=== PATIENT | female | born 1950 | race Caucasian/White ===

== ENCOUNTER 2021-11-16 17:37 | Emergency (ER) | payer MEDICARE, SELFPAY ==
--- NOTE | ~2021-11-16 | XR_ITS ---
XR hip RT min 2V DATE: 11/16/2021 18:18 INDICATION: Fall. Right hip injury, pain TECHNIQUE: AP and lateral views COMPARISON: None FINDINGS: There is diffuse osteopenia. There is degenerative disc disease in the lower lumbar and lumbosacral spine. The pubic symphysis and sacroiliac joints are intact. No right hip fracture or dislocation, avascular necrosis or bone destruction is detected. IMPRESSION: No evidence of right hip fracture or dislocation Osteopenia Degenerative disc disease of lumbar and lumbosacral area Reviewed, dictated and finalized at location A.
[2021-11-16 17:53] VITALS: BP 125/63; PULSE 90; RESP 18; TEMP 36.6; O2SAT 98
--- NOTE | 2021-11-16 17:54 | ED.GENADULT ---
HPI - General Adult General Chief complaint: Extremity Injury, Lower Stated complaint: Right Leg Pain Time Seen by Provider: 11/16/21 17:54 Source: patient Mode of arrival: ambulatory Limitations: no limitations History of Present Illness HPI narrative: 71-year-old female with hx MS and transverse myelitis presented for complaint of right hip pain sensation. Pt is w/c bound, and states she has noticed a change in the cushion of her w/c indicating a possible protrusion from her hip and is concerned she has injured the hip. States she fell during a transfer from w/c to toilet a few weeks ago and did not seek evaluation at that time. Endorses she can feel pressure sensation from belly button down, but cannot feel sharp pain. She has spoken to her neurologist about one week ago but did not discuss this complaint. Also contacted PCP today regarding this, but was not given a plan for this complaint. Related Data Home Medications Medication Instructions Recorded Confirmed bupropion HCl 300 mg PO DAILY 11/16/21 11/16/21 gabapentin 300 mg PO TID 11/16/21 11/16/21 glatiramer [Copaxone] 40 mg SUBCUT 3XW 11/16/21 11/16/21 lamotrigine 150 mg PO DAILY 11/16/21 11/16/21 mirabegron [Myrbetriq] 25 mg PO DAILY 11/16/21 11/16/21 paliperidone 6 mg PO DAILY 11/16/21 11/16/21 simvastatin 20 mg PO HS 11/16/21 11/16/21 Allergies Allergy/AdvReac Type Severity Reaction Status Date / Time No Known Allergies Allergy Verified 11/16/21 18:09 Review of Systems Review of Systems: CONSTITUTIONAL: Denies body aches, fever, chills EYES: Denies visual changes ENT: Denies rhinorrhea, congestion CARDIOVASCULAR: Denies chest pain, palpitations, or edema. RESPIRATORY: Denies cough or dyspnea. GASTROINTESTINAL: Denies abdominal pain, nausea, vomiting, or diarrhea. SKIN: Denies rash, itching, or wounds. MUSCULOSKELETAL: Reports right hip pain NEUROLOGIC: Denies headache, numbness, tingling, or weakness. PSYCH: Denies depression or anxiety. All systems reviewed & are unremarkable except as noted in HPI and below PMFSH Comments At time of signature, I have reviewed and agree with nursing past medical, surgical, social and family history unless otherwise noted. Please see nursing chart for further information. There is no relevant family history pertinent to the presenting complaint Exam Narrative: GENERAL: Well-appearing, well-nourished, and in no acute distress. HEAD: Normocephalic, atraumatic. EYES: PERRLA, conjunctivae clear NECK: Supple. CHEST: Speaks in full sentences. No respiratory distress. HEART: Regular rate and rhythm. Normal and equal peripheral pulses. EXTREMITIES: Chronic LE weakness, limited ROM, and decreased sensation; able to transfer to stand, no apparent deformity to posterior right hip; No edema or ecchymosis, No point tenderness. No open wounds, skin tenting, alignment normal, skin warm, dry, pink. Capillary refill less than 3 seconds. SKIN: Warm, dry, no rash. NEURO: Alert and oriented x3. PSYCH: Normal mood and affect Course Course Emergency Course: Patient is aware of diagnosis, understands and agrees to treatment plan. Anticipatory guidance given. Patient agrees to follow-up as directed and is aware of reasons to seek care at the emergency department. Portions of this record may have been created with voice recognition software Level of Care: Express Care Visit Vital Signs Vital signs: Vital Signs Temperature 97.9 F 11/16/21 17:53 Pulse Rate 90 11/16/21 17:53 Respiratory Rate 18 11/16/21 17:53 Blood Pressure 125/63 11/16/21 17:53 Pulse Oximetry 98 11/16/21 17:53 Temperature 97.9 F 11/16/21 17:53 Pulse Rate 90 11/16/21 17:53 Respiratory Rate 18 11/16/21 17:53 Blood Pressure 125/63 11/16/21 17:53 Pulse Oximetry 98 11/16/21 17:53 Reviewed Medical Decision Making MDM Narrative Medical decision making narrative: Xray right hip does not show fracture or dislocation. She is phylicia
== END 2021-11-16 19:00 | disposition home or self-care (01) ==
PROVIDERS: Emergency Provider Nurse Practitioner Family
DX: M25.551 Pain in right hip (principal); G35 Multiple sclerosis; E78.00 Pure hypercholesterolemia, unspecified; F32.A Depression, unspecified
CPT/HCPCS: 73502; 99213; G0463

== ENCOUNTER 2025-05-13 10:53 | Outpatient (CLI) | payer MEDICARE, SELFPAY ==
--- NOTE | ~2025-05-13 | XR_ITS ---
EXAM/ PROCEDURE: XR femur RT min 2V - 05/13/2025 11:06 CDT HISTORY: 74 years old Female with pain of right thigh, no injury COMPARISON: None available TECHNIQUE: 5 views FINDINGS/ IMPRESSION: There are no fractures or dislocations.Joint space narrowing, subchondral sclerosis, subchondral cyst formation and osteophyte formation, compatible with mild osteoarthritis. Reviewed, dictated and finalized at location N.
--- OUTSIDE RECORDS SUMMARY | 2025-05-13 11:23 | XMS_ITS | Encounter Summary ---
Author Organization [facility] Address [address] [place] [address] Care Team Providers Care Human Resources Coordinator Name Role Phone Vanna Carvajal MD Primary Care Provider [phone] Reason for Visit * Reason Onset Date Comments Message for Doctor/Nurse 02/21/2023 Encounter Details Date Type Department Care Team (Late st Contact Info) Description 02/21/2023 Telephone [facility] Family Medicine [place] [address] [facility] [address] [place] [id number] [place] [address] [facility] [address] [place] [address] Message for Doctor/Nurse Social History Tobacco Use Types Packs/Day Years Used Date Smoking Tobacco: Former Cigarettes 0.5 25 0 04/14/1964 - 04/14/1989 Smokeless Tobacco: Never Alcohol Use Standard Drinks/Week Comments No 0 (1 standard drink = 0.6 oz pur e alcohol) Comments No Sex and Gender Information Value Date Recorded Sex Assigned at Female 07/18/2023 6:44 PM HORIZONTAL DRILL OPERATOR Legal Sex Female 6:03 AM HORIZONTAL DRILL OPERATOR Gender Identity Female 07/18/2023 6:44 PM HORIZONTAL DRILL OPERATOR Sexual Orientation Not on file Occupation Industry Job Start Date Job End Date Not on file Not on file Not on file Not on file COVID-19 Exposure Response Date Recorded In the last 10 days, have yo u been in contact with someone who was confirmed or suspected to have Coronavirus/COVID-19? No / Unsure 02/16/2023 2:13 PM CDT documented as of this encounter Miscellaneous Notes * Telephone Encounter - Gemma Schumacher RN - 02/21/2023 9:57 AM CDT Called daughter, Paloma, back. She states that she has been frustrated with her mother's care at the hospital. Pt states that staff there told her to call her mother's PCP and ask what to do about the fecal incontinence that seems to be a new, recurring issue for her. Daughter was not aware how bad it had gotten, but she understands now that taking her to the ER on the was the right call. Paloma states that they basically have discharged her at this point and a SW is meeting with them to go over d/c and going to a SNF. Daughter says she had to bring up paperwork to the hospital to proveshe was her mother's POA and make decisions for her, which I understand and, yes, they need documentation of that. I told Paloma she needs to ask to speak to someone in charge on the floor (management, charge account clerk). Ifrosi is not satisfied wit her care, she needs to let them know. Unfortunately, there's not a lot we can do from her PCP office while she's admitted and going into a SNF. She is under the care of the hospitalist right now, and then the care team at the SNF once she is taken there. So I'm unsure why the staff on the floor told her to call us for info on fecal incontinence and what to do from here. She's admitted and is currently their patient. Paloma asked if I would call the floor and talk to the charge nurse, I said I cannot really do this and she needs to be contacting and asking to speak with him/her or upper management. Paloma was getting a call from someone at [facility] when I was talking to her, so she had to hung up withme and accept that call. She may call back. * Telephone Encounter - Maura Orellana - 02/21/2023 9:17 AM CDT Provider: Karmen Mcleod MD Next office visit: 05/16/2023 Caller: Paloma-daughter on phi Message: Thought her mother was having a knee issue on 02/16/23 and took her to [facility] ED but it turns out it was a severe MS relapse and the patients MS(Dr. Irving) doctor is at [facility], the patient is nowat [facility] and the doctors there since she has a MS doctor are telling the daughter that if she wantsanything treated she is going to need to contact the patients primary or MS doctor. Paloma states that her mother is suffering from fecal incontinence and the hospital staff are allowing her to just sit in fecal matter. Please contact her as soon as possible to assist with the care of the patient at the number below. Paloma has already tried to contact the patients MS( no luck getting a hold of him yet) doctor and they had to wait in the Er's waiting room for 11 hours and they didn't do an Mri until hours later and after hours and through the weekend. Paloma states that the hospital does not plan to d/c the patient home they plan to d/c her to a retirement facility. Patient has new lesions but they are not active. Patient can't transfer from her wheelchair and is having bowel movements and accidents all over the place and this was not happening 2 weeks ago so there is something wrong. Paloma states that at one point they switched the patient meds due to them not having them on the formulary. Please advise. Patients is in room 3326 in the Neuro floor at [facility] Call-back Number: [phone] documented in this encounter Plan of Treatment Not on file documented as of this encounter Visit Diagnoses Not on filedocumented in this encounter Additional Health Concerns Assessment Noted Time PHQ-9 Depression Total Score: 2 08/10/20 21 10:00 AM HORIZONTAL DRILL OPERATOR documented as of this encounter Care Teams Human Resources Coordinator Relationship Specialty Start Date End Date Vanna Carvajal MD [address] [place] [address] PCP - General Geriatric Medicine 07/26/24 documented as of this encounter
--- OUTSIDE RECORDS SUMMARY | 2025-05-13 11:23 | XMS_ITS | Encounter Summary ---
Author Organization [facility] Address [address] [place] [address] Care Team Providers Care Chancellor Name Role Phone Vanna Carvajal MD Primary Care Provider [phone] Reason for Visit * Reason Onset Date Comments Information 06/17/2023 Encounter Details Date Type Department Care Team (Late st Contact Info) Description 06/17/2023 Telephone [facility] Family Medicine [place] [id number] [place] [address] [place] [address] [place] [address] [facility] [address] [place] [phone] Information Social History Tobacco Use Types Packs/Day Years Used Date Smoking Tobacco: Former Cigarettes 0.5 25 0 04/14/1964 - 04/14/1989 Smokeless Tobacco: Never Alcohol Use Standard Drinks/Week Comments No 0 (1 standard drink = 0.6 oz pur e alcohol) Feeling Safe Answer Date Recorded Are you in a relationship wi th someone who hurts you emotionally and/or physically? No 02/26/2023 Food Insecurity Answer Date Recorded Social/Environmental Concerns No concerns Transportation Needs Answer Date Record ed Social/Environmental Concerns No concerns Housing Stability Answer Date Recorded Social/Environmental Concerns No concerns Utility Needs Answer Date Recorded Social/Environmental Concerns No concerns Comments No Sex and Gender Information Value Date Recorded Sex Assigned at Female 07/18/2023 6:44 PM DRAG OUT WORKER Legal Sex Female 6:03 AM DRAG OUT WORKER Gender Identity Female 07/18/2023 6:44 PM DRAG OUT WORKER Sexual Orientation Not on file Occupation Industry Job Start Date Job End Date Not on file Not on file Not on file Not on file documented as of this encounter Miscellaneous Notes * Telephone Encounter - Gemma Schumacher RN - 06/17/2023 11:[address] Mcleod - I called Paloma. She says that her mother's MS doctor says she may have Lewy Body Dementia, so she would need to see a different specialist. Wants to go over this info with Dr. Mcleod and see where they should go from here. Paloma says that the pt would not be attending the appt. I said that she would need to attend if she is the pt and it's regarding her care. Paloma said we could schedule it under her name then and it could be her appt. I'm not sure we can do that. Paloma wants to come in person and talk to Dr. Mcleod. But the pt, Flor, needs to be here if it's scheduled as an appt for her. If it's under Paloma's name (who is also our pt), it's not necessarily concerning Paloma and I don't think that would be appropriate. I scheduled an appt for now at 10 AM on 06/21/23. * Telephone Encounter - Fidelia Aragon - 06/17/2023 9:20 AM CDT Provider: Karmen Mcleod MD Next office visit: 08/19/2023 Karmen Mcleod MD Caller: MARY UREÑAI Message: Daughter would like for the office to contact her so she can give information about the patient current health condition. Paloma would like to talk about options for the patient getting a referral for [facility] and medication change .Please contact to discuss Call-back Number: [phone] documented in this encounter Plan of Treatment Not on file documented as of this encounter Goals Goal Patient Goal Type Associated Problems Recent Progress Patient-Stated? Author Connect to outpatient pscyhiatry. General Yes Jose Lara Note: - Patient requires support from Collaborative Fashion Styling Intern to connect to services - documented as of this encounter Visit Diagnoses Not on filedocumented in this encounter Additional Health Concerns Assessment Noted Time PHQ-9 Depression Total Score: 4 05/10/20 10:26 AM CDT documented as of this encounter Care Teams Chancellor Relationship Specialty Start Date End Date Vanna Carvajal MD [address] [place] [address] PCP - General Geriatric Medicine 07/26/24 documented as of this encounter
--- OUTSIDE RECORDS SUMMARY | 2025-05-13 11:23 | XMS_ITS | Encounter Summary ---
Author Organization [facility] [employer] [facility] [place] , [place] Care Team Providers Care Linoleum Tile Layer Name Role Phone Vanna Carvajal MD Primary Care Provider [phone] Encounter Details Date Type Department Care Team (Late st Contact Info) Description 03/20/2023 [facility]phone [facility] [address], [address] [place] [address] Carol Curry, TATY [address] [place] [address] Social History Tobacco Use Types Packs/Day Years [...] Sex Assigned at Female 07/18/2023 6:44 PM HARMONIC ANALYST Legal Sex Female 6:03 AM HARMONIC ANALYST Gender Identity Female 07/18/2023 6:44 PM HARMONIC ANALYST Sexual Orientation Not on file Occupation Industry Job Start Date Job End Date Not on file Not on file Not on file Not on file documented as of this encounter Miscellaneous Notes * Telephone Encounter - Carlo Curry RN - 03/20/2023 1:26 PM CDT Spoke with patient about home health services RN PT OT ENVIRONMENTAL PROTECTION INSPECTOR TUNGSTEN REFINER she said no she does not need all those services. She said she is already going outpatient to [facility] for her therapy services. She also confirmed she does live in [place]. If she should in the future need home health services a company will need to be identified that goes to [place]. I will close this referral at this time. Thank you! documented in this encounter Plan of Treatment Not on file documented as of this encounter Visit Diagnoses Not on filedocumented in this encounter Additional Health Concerns Assessment Noted Time PHQ-9 Depression Total Score: 2 08/10/20 21 10:00 AM HARMONIC ANALYST documented as of this encounter Care Teams Linoleum Tile Layer Relationship Specialty Start Date End Date Vanna Carvajal MD [address] [place] [address] PCP - General Geriatric Medicine 07/26/24 documented as of this encounter
--- OUTSIDE RECORDS SUMMARY | 2025-05-13 11:23 | XMS_ITS | Encounter Summary ---
Author Organization [facility] Healthcare Address [address] [place] [address] Care Team Providers Care Tying Machine Operator Lumber Name Role Phone Vanna Carvajal MD Primary Care Provider [phone] Encounter Details Date Type Department Care Team (Late st Contact Info) Description 04/18/2025 Telephone [facility] [address] [place], [place] [phone] [place] [id number] [place] [address] [address] [place], [place] [id number] Social History Tobacco Use Types Packs/Day Years Used Date Smoking Tobacco: Former Smokeless Tobacco: Never Comments:quit in the 's Alcohol Use Standard Drinks/Week Comments No 0 (1 standard drink = 0.6 oz pur e alcohol) AUDIT-C Answer Date Recorded Q1: How often do you have a drink containing alc ohol? Never 02/19/2025 Average Number of Drinks Not on file 025 Frequency of Binge Drinking Not on file 02/03 Personal Safety Answer Date Recorded Have you ever been in or are you currently in a harmful physical or emotional relationship or is someone making you feel afraid or unsafe? Denies 06/20/2023 Comments No Sex and Gender Information Value Date Recorded Sex Assigned at Not on file Legal Sex Female 4:12 AM AIRCRAFT MAINTENANCE DIRECTOR Gender Identity Not on file Sexual Orientation Not on file documented as of this encounter Miscellaneous Notes * Telephone Encounter - Silvia Gilbert - 04/18/2025 8:31 AM CDT LM FOR FLOR, HER SCS TRIAL WAS DENIED AND JASMIN AND DR COUGHLIN SAID TO DO A FEMORAL NERVE BLOCK WITHPOSSIBLE PNS TRIAL. PLEASE SCHEDULE THE BLOCK. documented in this encounter Plan of Treatment Not on file documented as of this encounter Visit Diagnoses Not on filedocumented in this encounter Care Teams Tying Machine Operator Lumber Relationship Specialty Start Date End Date Vanna Carvajal MD [address] [address] PCP - General Geriatric Medicine 02/19/25 documented as of this encounter
--- OUTSIDE RECORDS SUMMARY | 2025-05-13 11:23 | XMS_ITS | Encounter Summary ---
Author Organization [facility] Address [address] [place] [address] Care Team Providers Care Clerical Adviser Name Role Phone Vanna Carvajal MD Primary Care Provider [phone] Reason for Visit * Reason Onset Date Comments Medication Refill 08/25/2012 Encounter Details Date Type Department Care Team (Late st Contact Info) Description 08/25/2012 Refill Central Business Office [address] [place] [phone] Mychart, Generic Provider Multiple sclerosis (CMS/HCC) (Primary Dx) Social History Tobacco Use Types Packs/Day Years Used Date Smoking Tobacco: Former Cigarettes 0.5 25 0 04/14/1964 - 04/14/1989 Alcohol Use Standard Drinks/Week Comments No 0 (1 standard drink = 0.6 oz pur e alcohol) Comments No Sex and Gender Information Value Date Recorded Sex Assigned at Female 07/18/2023 6:44 PM LAP MAKER Legal Sex Female 6:03 AM LAP MAKER Gender Identity Female 07/18/2023 6:44 PM LAP MAKER Sexual Orientation Not on file Occupation Industry Job Start Date Job End Date Not on file Not on file Not on file Not on file documented as of this encounter Miscellaneous Notes * Telephone Encounter - Sabrina Can, - 08/25/2012 2:38 PM CSTFrom: FLOR CASILLAS Sent: TueAug 25, 2012 12:48 PM Subject: Medication Renewal Request Flor Casillas would like a refill of the following medications: Preferred pharmacy: [facility] Code Comment: this is for Dr. Sabrina Méndez need a new script for my Betaseron. Other - see comments for explanation MAKER documented in this encounter Plan of Treatment Not on file documented as of this encounter Visit Diagnoses Diagnosis Multiple sclerosis (CMS/HCC)- Primary Multiple sclerosis documented in this encounter Care Teams Clerical Adviser Relationship Specialty Start Date End Date Vanna Carvajal MD [address] [place] [address] PCP - General Geriatric Medicine 07/26/24 documented as of this encounter
--- OUTSIDE RECORDS SUMMARY | 2025-05-13 11:23 | XMS_ITS | Encounter Summary ---
Author Organization [facility] Address [address] [place] [address] Care Team Providers Care Bridge Manager Name Role Phone Vanna Carvajal MD Primary Care Provider [phone] Reason for Visit * Reason Onset Date Comments Medication Refill 06/19/2012 Encounter Details Date Type Department Care Team (Late st Contact Info) Description 06/19/2012 Refill Central Business Office [address] [place] [address] Brian, Andree Provider Social History Tobacco Use Types Packs/Day Years Used Date Smoking Tobacco: Former Cigarettes 0.5 25 0 04/14/1964 - 04/14/1989 Alcohol Use Standard Drinks/Week Comments No 0 (1 standard drink = 0.6 oz pur e alcohol) Comments No Sex and Gender Information Value Date Recorded Sex Assigned at Female 07/18/2023 6:44 PM SENIOR HR BUSINESS PARTNER Legal Sex Female 6:03 AM SENIOR HR BUSINESS PARTNER Gender Identity Female 07/18/2023 6:44 PM SENIOR HR BUSINESS PARTNER Sexual Orientation Not on file documented as of this encounter Miscellaneous Notes * Telephone Encounter - Anthony Bustillos - 06/19/2012 10:58 AM CDTFrom: FLOR CASILLAS Sent: TueJun 19, 2012 10:55 AM Subject: Medication Renewal Request Flor Vinny would like a refill of the following medications: Preferred pharmacy: [facility] [address] [place] [address] Comment: Baclofen- [facility] has been trying to get approval for several days.I am completely out of it, mila gave me a few until the script gets sent in. Thank you Other - see comments for explanation documented in this encounter Plan of Treatment Not on file documented as of this encounter Visit Diagnoses Not on filedocumented in this encounter Care Teams Bridge Manager Relationship Specialty Start Date End Date Vanna Carvajal MD [address] [place] [address] PCP - General Geriatric Medicine 07/26/24 documented as of this encounter
--- OUTSIDE RECORDS SUMMARY | 2025-05-13 11:23 | XMS_ITS | Clinical Summary ---
Author Organization [facility] Address [address] [place] [address] Care Team Providers Care Per Diem Name Role Phone Unavailable Primary Care Provider Unavailabl e Immunizations Immunization Administration Dates Next Due Covid-19, Mrna, Lnp-s, Pf, 30 Mcg/0.3 Ml Dose (P fizer) 09/28/2021 Social History Tobacco Use Types Packs/Day Years Used Date Smoking Tobacco: Never Assessed Comments Unknown Sex and Gender Information Value Date Recorded Sex Assigned at Not on file Legal Sex Female 11:49 AM TRIMMING CASER Gender Identity Not on file Sexual Orientation Not on file Plan of Treatment Health Maintenance Due Date Last Done Comments Hepatitis C Virus (HCV) Screening 1950 TdaP Immunization 1949 Cologuard 1994 Colonoscopy 1994 Colorectal Cancer Screening 1994 Immunochemical Fecal Occult Blood 1994 Zoster Immunization (1 of 2) 1999 Respiratory Syncytial Virus (RSV) Immunization (Adult) (1 - 1-dose 75+ series) 2024 Influenza Immunization (#1) 2025 12/0 02/2021, 07/10/2020, 07/10/2020, Additional history exists SARS-COV-2 Immunization (2024- season) 2025 09/28/2021, 11/03/2020, 10/13/2020 Pneumococcal Immunization (50+ years) Completed 12/06/2018, 12/02/2014, 09/17/2013 Hepatitis B Immunization Aged Out No longer eligible based on patient's age to complete this topic Human Papillomavirus (HPV) Immunization Aged Out No longer eligible based on patient's age to complete this topic Meningococcal Immunization (ACWY) Aged Out No longer eligible based on patient's age to complete this topic Rotavirus Immunization Aged Out No lo nger eligible based on patient's age to complete this topic
--- OUTSIDE RECORDS SUMMARY | 2025-05-13 11:23 | XMS_ITS | Patient Health Record ---
Author Organization [facility] Address [address] Parekh. [address] [place] [address] Care Team Providers Care Hazardous Waste Technician Name Role Phone Yvonne Boyle MD Primary Care Provider Unavailabl e Reason For Referral No Information Medications Medication SIG (Take, Route, Frequency, Duration) Notes Start Date End Date Status metFORMIN HCl Active OTC/Vitamins Centrum silver, D Active Copaxone Active Baclofen Active clonazePAM Active OLANZapine Active PriLOSEC Active immodium Active Social History Tobacco Use: Social History Observation Description Date Details (start date - stop date) Never Smoker NA - NA Tobacco Use/Smoking Question Answer Notes Are you a nonsmoker Problems Problem Type SNOMED Code ICD Code Onset Dates Problem Status W/U Status Risk Notes Problem Fecal urgency (07407254) Fecal urgency (R15.2) Active confirmed Problem Chronic diarrhea (991411413) Chronic diarrhea (K52.9) Active confirmed She comes in fo r chronic diarrhea with associated incontinence and fecal urgency. She has been taking Imodium as needed, which helps. There are no other alarm features. She reports her last colonoscopy was 7 years ago with findings of polyps. A copy was not available today. Suspect her symptoms are related to her immobility as well as a functional disorder. Unlikely, she has C. difficile, microscopic colitis, GI virus, IBD, celiac disease, or others. Other considerations would include a food intolerance or SIBO Problem History of polyp of colon (208970867) History of colon polyps (Z86.010) Active confirmed Problem Bowel incontinence (52978364) Fecal incontinence (R15.9) Active confirmed Plan Of Treatment Pending Test Test Name Order Date Colonoscopy 10/22/2019 Insurance Providers Payer Name Payer Address Payer Phone Subscriber Number Group Number Insured Name Patient Relationship to Insured Coverage Start Date Coverage End Date [employer] Gold Advantage O [address] [place] [phone] [id number] Flor Casillas Self - patient is the insured Medical (General) History Medical History History ICD Code Multiple Sclerosis Diabetes Surgical History Surgery Date(Month/Year) Hernia Gallstones Tonsillectomy Tubal ligation Cataract surgery Hospitalization History Reason Date(Month/Year) Multiple sclerosis
--- OUTSIDE RECORDS SUMMARY | 2025-05-13 11:23 | XMS_ITS | Encounter Summary ---
Author Organization [facility] Address [address] [place] [address] Care Team Providers Care Casting Sorter Name Role Phone Vanna Carvajal MD Primary Care Provider [phone] Reason for Visit * Reason Comments Medication Refill Encounter Details Date Type Department Care Team (Late st Contact Info) Description 06/11/2018 Refill [facility] Medicine [place] [id number] [place] [address] [address] [place] [address] Yvonne Boyle MD NO ADDRESS ON FILE Social History Tobacco Use Types Packs/Day Years Used Date Smoking Tobacco: Former Cigarettes 0.5 25 0 04/14/1964 - 04/14/1989 Smokeless Tobacco: Never Alcohol Use Standard Drinks/Week Comments No 0 (1 standard drink = 0.6 oz pur e alcohol) Comments No Sex and Gender Information Value Date Recorded Sex Assigned at Female 07/18/2023 6:44 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 Legal Sex Female 6:03 AM MARKET 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 WORKER Gender Identity Female 07/18/2023 6:44 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 Sexual Orientation Not on file Occupation Industry Job Start Date Job End Date Not on file Not on file Not on file Not on file documented as of this encounter Miscellaneous Notes * Tele[place] Encounter - [place] - 06/12/2018 8:19 AM CDT [place]HEMI[place] 06-05-18 F/u 12-06-18 LF 04-16-18 #450 + 1 documented in this encounter Plan of Treatment Not on file documented as of this encounter Visit Diagnoses Not on filedocumented in this encounter Additional Health Concerns Assessment Noted Time PHQ-9 Depression Total Score: 2 06/05/20 18 12:00 PM CDT documented as of this encounter Care Teams Casting Sorter Relationship Specialty Start Date End Date Vanna Carvajal MD [address] [address] PCP - General Geriatric Medicine 07/26/24 documented as of this encounter
--- OUTSIDE RECORDS SUMMARY | 2025-05-13 11:23 | XMS_ITS | Clinical Summary ---
Author Organization [facility] Address [address] [place] [address] Care Team Providers Care Electrical Technician Instructor Name Role Phone Unavailable Primary Care Provider Unavailabl e Allergies Active Allergy Reactions Criticality Noted Date Comments Adhesive Rash Medium 01/22/2019 Metformin Diarrhea Low 12/20/2019 Oxycodone Rash,Other (See Comments) Medium 05/08/2019 Medications solifenacin (VESICARE) 5 MG tablet Take 1 tablet (5 mg total) by mouth in the morning. 30 tablet 3 Active pantoprazole (PROTONIX) 40 MG EC/DR tablet Take 1 tablet (40 mg total) by mouth in the morning. 30 tablet 3 Active mirtazapine (REMERON) 7.5 MG tablet Take 1 tablet (7.5 mg total) by mouth nightly. 30 tablet 3 Active melatonin tablet Take 1 tablet (3 mg total) by mouth nightly. 0 3 Active glatiramer acetate (COPAXONE) 40 MG/ML solution prefilled syringe subcut injection Inject 1 mL (40 mg total) under the skin 3 (three) times a week. 13 mL 3 Active cholecalciferol (VITAMIN D3) 25 MCG (1000 UT) tablet Take 2 tablets (2,000 Units total) by mouth in the morning. 60 tablet 3 Active baclofen (LIORESAL) 5 MG tablet tablet Take 1 tablet (5 mg total) by mouth 3 (three) times a day. 30 tablet 3 Active bisacodyl (DULCOLAX) 10 MG suppository Insert 1 suppository (10 mg total) into the rectum in the morning. 0 3 Active atorvastatin (LIPITOR) 10 MG tablet Take 1 tablet (10 mg total) by mouth nightly. 30 tablet 3 Active acetaminophen (TYLENOL) 325 MG tablet Take 2 tablets (650 mg total) by mouth every 6 (six) hours as needed (1st line for pain). 0 3 Active Active Problems Problem Noted Date Diagnosed Date Multiple sclerosis 06/24/2023 Immunizations Immunization Administration Dates Next Due Pfizer SARS-CoV-2 Vaccination 09/28/2021 Social History Tobacco Use Types Packs/Day Years Used Date Smoking Tobacco: Former Cigarettes Smokeless Tobacco: Never Tobacco Cessation:Counseling Given: No Alcohol Use Standard Drinks/Week Comments Never 0 (1 standard drink = 0.6 oz pur e alcohol) Comments Unknown Sex and Gender Information Value Date Recorded Sex Assigned at Not on file Legal Sex Female 12:25 PM EDT Gender Identity Not on file Sexual Orientation Not on file Last Filed Vital Signs Vital Sign Reading Time Taken Comments Blood Pressure 131/78 06/27/2023 1:25 PM CDT Pulse 93 06/27/2023 1:25 PM CDT Temperature 36.4 C (97.6 F) 06/27/2023 7:04 AM CDT Respiratory Rate 18 06/27/2023 1:25 PM CDT Oxygen Saturation 95% 06/27/2023 1:2 5 PM CDT RA, seated rest Inhaled Oxygen Concentration - - Weight 74.4 kg (164 lb) 06/24/2023 6:11 PM CDT Height 157.5 cm (5' 2) 06/24/2023 6:11 PM CDT Body Mass Index 30 06/24/2023 6:11 PM CDT Plan of Treatment Health Maintenance Due Date Last Done Comments CT Colonography 1949 Colonoscopy 1950 Colorectal Cancer Screening 1949 FIT-DNA (Cologuard) 1949 FIT 1949 FOBT 1950 Sigmoidoscopy 1950 Annual Visit Topic 1950 Hepatitis C Screening 1967 DTaP/Tdap/Td Vaccines (1 - Tdap) 1968 Pneumococcal Vaccine: 65+ Ye ars (1 of 2 - PCV) 1999 HIB Vaccines Aged Out No longer eligi ble based on patient's age to complete this topic HPV Vaccines Aged Out No longer eligi ble based on patient's age to complete this topic Hepatitis A Vaccines Aged Out No long er eligible based on patient's age to complete this topic Hepatitis B Vaccines Aged Out No long er eligible based on patient's age to complete this topic IPV Vaccines Aged Out No longer eligi ble based on patient's age to complete this topic Meningococcal Vaccine Aged Out No maria teresa quique eligible based on patient's age to complete this topic Advance Directives * Full Resuscitation (Latest Code Status on File) Date Activated Date Inactivated Comments 06/24/2023 7:48 PM 06/27/2023 7:18 PM Question Answer Comments I have discussed this order with the patient or his/her surrogate and have received informed consent. Yes
--- OUTSIDE RECORDS SUMMARY | 2025-05-13 11:23 | XMS_ITS | Encounter Summary ---
Author Organization [facility] Healthcare Address [address] [place] [address] Care Team Providers Care Page Makeup System Operator Name Role Phone Yvonne Boyle MD Primary Care Provider [phone] Vanna Carvajal MD Primary Care Provider [phone] Encounter Details Date Type Department Care Team (Late st Contact Info) Description 07/30/2020 Telephone [facility] - Imaging [address] [place] [address] Transcribed Order, Provider Social History Tobacco Use Types Packs/Day Years Used Date Smoking Tobacco: Former Smokeless Tobacco: Never Comments:quit in the 90's Alcohol Use Standard Drinks/Week Comments No 0 (1 standard drink = 0.6 oz pur e alcohol) Comments Unknown Sex and Gender Information Value Date Recorded Sex Assigned at Not on file Legal Sex Female 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
--- OUTSIDE RECORDS SUMMARY | 2025-05-13 11:23 | XMS_ITS | Clinical Summary ---
Author Organization [facility] Address [address] [place] [address] Care Team Providers Care Youth Associate Name Role Phone Vanna Carvajal MD Primary Care Provider [phone] Allergies Active Allergy Reactions Criticality Noted Date Comments Adhesive Rash Medium 01/22/2019 Adhesive Tape-Silicones Rash Medium 01/22/2019 Hydrocodone-Acetaminophen Rash Medium 03/07/2024 Metformin Diarrhea Low 12/20/2019 Oxycodone Rash Medium 05/08/2019 Medications cholecalciferol (VITAMIN D-3) 2,000 unit capsule Take 0.5 capsules (1,000 Units total) by mouth 2 (two) times a day Active solifenacin (VESIcare) 5 mg tablet Take 1 tablet (5 mg total) by mouth daily Active pantoprazole DR (PROTONIX) 40 mg EC tablet Take 1 tablet (40 mg total) by mouth daily as needed 3 Active imipramine (TOFRANIL) 10 mg tablet Take 1 tablet (10 mg total) by mouth nightly Active atorvastatin (LIPITOR) 10 mg tablet Take 1 tablet (10 mg total) by mouth nightly Active bisacodyL (DULCOLAX) 10 mg suppositoryIndi cations:constip ation Insert 1 suppository (10 mg total) into the rectum every other day Active pregabalin (LYRICA) 75 mg capsule Take 1 capsule (75 mg total) by mouth 1 tablet in the morning & 2 tablet in PM Active ibuprofen (ADVIL,MOTRIN) 600 mg tablet Take 1 tablet (600 mg total) by mouth every 6 (six) hours as needed for pain Active clonazePAM (KlonoPIN) 0.5 mg tablet TAKE 1/2 TABLET BY MOUTH TWICE DAILY NEEDED 30 tablet 4 5 Active Active Problems Problem Noted Date Diagnosed Date Other chronic pain 03/13/2025 Adjustment disorder with depressed mood 03/13/20 25 Chronic pain of right lower extremity 02/19/2025 Leg weakness, bilateral 06/19/2023 Assessment & Plan (06/20/2023 2:52 PM CDT): Difficulty with transfers even with 2-person assist which began recently. MRI brain and spine negative for new demyelinating lesions or other explanatory findings. No saddle anesthesia or incontinence. - PT/OT rec inpatient rehab, pt and family agreeable. CM following - pt reports drowsiness with baclofen, will encourage prn klonopin for spasms instead Assessment & Plan (06/19/2023 4:17 PM CDT): Difficulty with transfers even with 2-person assist which began recently. MRI brain and spine negative for new demyelinating lesions or other explanatory findings. No saddle anesthesia or incontinence. - PT/OT - Decrease baclofen to 10 mg TID Cognitive impairment 06/19/2023 Assessment & Plan (06/22/2023 11:19 AM CDT): Waxing waning mentation with decline at night as described by family most closely resembles delirium. Per neurology, there is a suspected component of cognitive impairment/dementia, perhaps with Lewy Bodies. Additional component of polypharmacy is highly likely - patient is on numerous psychotropics which have had limited if any benefit according to and daughter. - Brain MRI unchanged from prior - TSH, HIV, RPR, Ammonia, B12, Chest X-ray WNL/negative. MMA pending - Stopped psychiatric medications (pt/family perceived no improvement w/ them) and if she truly has Lewy Body Dementia she will need to be off them anyway - has already been referred to [facility], encouraged f/u - delirium precautions Assessment & Plan (06/19/2023 4:10 PM CDT): Waxing waning mentation with decline at night as described by family most closely resembles delirium. Per neurology, there is a suspected component of cognitive impairment/dementia, perhaps with Lewy Bodies. Additional component of polypharmacy is highly likely - patient is on numerous psychotropics which have had limited if any benefit according to and daughter. - Brain MRI unchanged from prior - Check B12, MMA, TSH, HIV, RPR, Ammonia, Chest X-ray per neuro recommendations - Anticipate discussion with psychiatry regarding possible weaning of medications Leg swelling 06/19/2023 Assessment & Plan (06/20/2023 2:54 PM CDT): CT negative for fracture. Venous doppler negative for DVT - improving w/o intervention Assessment & Plan (06/19/2023 4:35 PM CDT): CT negative for fracture. Venous doppler pending Dysphagia 06/19/2023 Assessment & Plan (06/20/2023 2:55 PM CDT): Difficulty swallowing and coughing with PO intake per family. - ASSISTANT RESEARCH SCIENTIST eval WNL, cont regular diet with thin liquids Assessment & Plan (06/19/2023 5:10 PM CDT): Difficulty swallowing and coughing with PO intake per family. - ASSISTANT RESEARCH SCIENTIST consult Aortic atherosclerosis 07/10/2020 Pain 05/22/2020 Overview (01/14/2022): 1. Do you have any questions about Covid-19? (with the goal to find out how informed a member is about Covid-19)?No 2. How do you protect yourself and/or your family unit since there is more public activity now? Stay home, wear masks 3. Do you know the symptoms of Covid-19 and what you would do if you or someone in your family started having those symptoms (with the goal of assessing action plan)?Yes If member is SARS-CoV-2 positive, ensure they understand the action plan from their provider. 4. Do you foresee any problems with food/cooking, cleaning, monitoring symptoms of infection, and managing family/other contacts?No 5. Have you recently experienced or do your anticipate any impact/delay in your appointments or treatments because of Covid-19?No 6. Have you felt a change in your mood or anxiety levels related to the pandemic?No Bonny Frazier RN 05/22/20 Last Assessment & Plan: 1. Do you have any questions about Covid-19? (with the goal to find out how informed a member is about Covid-19)?No 2. How do you protect yourself and/or your family unit since there is more public activity now? Mask 3. Do you know the symptoms of Covid-19 and what you would do if you or someone in your family started having those symptoms (with the goal of assessing action plan)?Yes If member is SARS-CoV-2 positive, ensure they understand the action plan from their provider. 4. Do you foresee any problems with food/cooking, cleaning, monitoring symptoms of infection, and managing family/other contacts?No 5. Have you recently experienced or do your anticipate any impact/delay in your appointments or treatments because of Covid-19?No 6. Have you felt a change in your mood or anxiety levels related to the pandemic?No Bonny Frazier RN 09/02/20 Fatigue due to depression 10/13/2019 Cognitive dysfunction accompanying multiple scle rosis 10/13/2019 Incontinence of feces with fecal urgency 020 Refusal of statin medication by patient 08/05/20 19 Prediabetes 06/05/2018 Osteopenia of left thigh 12/08/2017 Paresthesia of bilateral legs 12/30/2015 Major depressive disorder, recurrent episode, mi ld 08/12/2015 Obesity (BMI 30.0-34.9) 08/12/2015 Depression 01/19/2014 Overview (12/08/2016): DEPRESSIVE DISORDER NEC Assessment & Plan (06/20/2023 2:50 PM CDT): On multiple psychotropics: bupropion, buspirone, escitalopram, paliperidone, lamotrigine, clonazepam. Per family, the benefit has been unclear and the patient has been tried on multiple other medications in the past. - per long discussion with pt and family, will stop psychiatric meds at this time as pt perceives no improvement on them - pt can f/u with therapist after dc, only needs to f/u with Psych if she is interested in resuming medication Assessment & Plan (06/19/2023 4:15 PM CDT): On multiple psychotropics: bupropion, buspirone, escitalopram, paliperidone, lamotrigine, clonazepam. Per family, the benefit has been unclear and the patient has been tried on multiple other medications in the past. - Continue regimen for now (except benzos) - Anticipate psychiatry consultation during the weekday for assistance with medication titration Assessment & Plan (01/10/2020 11:13 AM CDT): Now on Vraylar Continue seeing psychiatrist. Encouraged her to call her counselor to see if they are doing tele visits Exercise discussed and encouraged for mood Multiple sclerosis 01/19/2014 Overview (06/16/2023): MS Medication History: RRMS Symptom onset & diagnosis: 2005 with incomplete TM 1. Betaseron: [id number] 2. Copaxone: 2013-10/2022 3. Copaxone: 06/2023- Assessment & Plan (06/20/2023 2:50 PM CDT): Currently on copaxone. Brain and spine MRI this admission without new lesions. - Continue Copaxone - cont outpt Neuro f/u Assessment & Plan (06/19/2023 4:17 PM CDT): Currently on copaxone. Brain and spine MRI this admission without new lesions. - Continue Copaxone Assessment & Plan (01/10/2020 11:10 AM CDT): Continue Copaxone TIW Vitamin D 2,000 Exercise again discussed and encouraged. We discussed online resources such as [email or web address] on Youtube. Follow up as scheduled in April with Dr. 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] (Primary Dx); Pain of right thigh; Mononeuropathy [G58.9] Discharge Disposition: Discharge to home or self care 04/18/2025 Telephone [facility] [address] [place] [id number] Juan Coughlin MD 04/17/2025 Documentation [facility] [address] [place] [id number] Melo Solorzano NP 03/25/2025 Telephone [facility] [address] [facility] [address] [place] [id number] Viktoria Narvaez 03/13/2025 8:45 AM CDT Telemedicine [facility] [address] [place] [phone] Sulaiman Little, PhD Adjustment disorder with depressed mood (Primary Dx); Other chronic pain 02/19/2025 10:42 AM CDT - 02/19/2025 11:59 PM CDT Hospital Encounter [facility] [address] [place] [id number] Melo Solorzano NP Lower paraplegia (HCC) (Primary Dx); Other chronic pain; Pain; Multiple sclerosis (HCC); Chronic pain of right lower extremity Discharge Disposition: Discharge to home or self care from Last 3 Months Immunizations Immunization Administration Dates Next Due Influenza, Quadrivalent, Hig h Dose, Preservative Free, Intrr 08/10/2022,08/10/2021,07/10/2020 Influenza, Trivalent, High D ose, Split, Preservative Free, Intramuscular 05/16/2023,06/05/2018,11/30/2017,06/16,08/11/2015 Influenza, Trivalent, IM (MDV) 09/17/2013 Influenza, Trivalent, Split, Preservative Free, Intradermal 07/26/2012 Influenza, Unspecified 07/10/2020 Pfizer SARS-CoV-2 Monovalent Vaccination (12+ Yrs) PURPLE 11/03/2020,10/13/2020 Pneumococcal Conjugate PCV 13 12/02/2014 Pneumococcal Conjugate, Unspecified 09/17/2013 Pneumococcal Polysaccharide PPV23 12/06/2018 Surgical History Surgery Date Site/Laterality Comments CHOLECYSTECTOMY Cholecystectomy HERNIA REPAIR Medical History Medical History Date Comments Hx Other Medical transverse myel itis Hx Other Medical overactive blad kristin Paralytic gait Spastic gait - ( Added by TW Conv) Multiple sclerosis (HCC) Multipl e sclerosis - (Added by Conv) Transverse myelitis (HCC) Depression Anxiety GERD (gastroesophageal reflux disease) Family History Medical History Relation Name Comments Diabetes Brother Family history of diabetes mellitus - (Added by TW Conv) Other Mother Headaches, migr clau; Relation Name Status Comments Brother Mother Alive Social History Tobacco Use Types Packs/Day Years Used Date Smoking Tobacco: Former Smokeless Tobacco: Never Tobacco Cessation:Counseling Given: Not Answered Comments:quit in the Alcohol Use Standard Drinks/Week Comments No 0 [...] on file Legal Sex 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 Gender Identity Not on file Sexual Orientation Not on file Obstetrics History Last Filed Vital Signs Vital Sign Reading Time Taken Comments Blood Pressure 133/72 05/09/2025 1:29 PM CDT Pulse 80 05/09/2025 1:29 PM CDT Temperature 36.3 C (97.3 F) 05/09/2025 11:49 AM CDT Respiratory Rate 18 05/09/2025 1:29 PM CDT Oxygen Saturation 96% 05/09/2025 1:29 PM CDT Inhaled Oxygen Concentration - - Weight 73.9 kg (163 lb) 11/06/2024 3:05 PM 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 Height 157.5 cm (5' 2) 02/19/2025 11:18 AM CDT Body Mass Index 29.81 11/06/2024 3:05 PM 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 Plan of Treatment Health Maintenance Due Date Last Done Comments Colon Cancer Screening-Colonoscopy 1950 Depression Screening 1950 Hepatitis C Screening 1949 Hepatitis B Screening 1967 Well Visit 65+ 2014 Covid-19 Vaccine (4 - 2024-2 6 season) 2025 09/28/2021, 11/03/2020, 10/13/2020 Influenza Vaccine (#1) 2025 , 08/10/2022, 08/10/2021, Additional history exists Fall Risk Assessment 02/19/2026 02/19/2025 Osteoporosis Screening-Bone Density Scan 08/06/2026 08/06/2024, 08/06/2024, 08/25/2021, Additional history exists DTaP/Tdap/Td Vaccine (2 - Td or Tdap) 03/07/2034 03/07/2024 Breast Cancer Screening-Mammogram Discontinued 015, 12/23/2014 Pneumococcal vaccine 65+ Completed 019, 12/02/2014, 09/17/2013 Zoster Vaccine Completed 08/05/2024, 04/13/2024 Procedures Procedure Name Priority Date/Time Associated Diagnosis Comments PAIN MGMT IMAGING FEMORAL NERVE BLOCK Schedule Routine, Read Routine (OP Routine) 05/09/2025 1:37 PM CDT Pain of right thigh DEXA AXIAL SKELETON BONE DENSITY 1 OR MORE SITES Routine 12/23/2014 11:54 AM CDT SCREENING MAMMOGRAM 2D BILATERAL Routine 12/23/2014 11:54 AM CDT from Last 3 Months or Most Recently Relevant to Health Maintenance Results * Imaging Femoral Nerve Block (74520) (05/09/2025 1:37 PM CDT) Narrative RAD_PACS_[facility] - 05/09/2025 1:39 PM CDT The images from this study are not interpreted by Radiology. Please refer to the physician's procedure / OR operative note. us Juan Coughlin MD IMG PAIN MGMT PROCEDU RES Final Result RAD_PACS_[facility] * Screening Mammogram 2D Bilateral (12/23/2014 11:54 AM CDT) Anatomical Region Laterality Modality Breast Bilateral Mammography 12/23/2014 11:5 4 AM CDT Impressions 12/23/2014 1:12 PM CDT INCOMPLETE BIRADS 0: NEED ADDITIONAL IMAGING EVALUATION 1. Indeterminate left CC view asymmetry. Recommend return to the Breast Center for further imaging. 2. No evidence of malignancy in the right breast. Routine annual mammography of the right breast is recommended. Electronically signed by: Dr. Mp Oliver nh/:12/23/2014 13:10:44 Post Partum Nurse: Dolores APONTE(R)(M), [facility] letter sent: Additional Imaging Reading location: BI-RADS: 0 INCOMPLETE:NEED ADDITIONAL IMAGING EVALUATION [EOD] Narrative 12/23/2014 1:12 PM CDT - GENIA BILATERAL SCREENING W/CAD BILATERAL DIGITAL SCREENING MAMMOGRAM WITH CAD WITH MEDIOLATERAL OBLIQUE CRANIOCAUDAL: 12/23/2014 The study was acquired using full field digital technology and interpreted from soft copy. Current study was also evaluated with ICAD version 7.2. COMPARISONS: None - baseline. BREAST TISSUE: There are scattered areas of fibroglandular density. FINDINGS: There is a subcentimeter asymmetry in the posterolateral left breast on CC view. There is no suspicious calcification in the left breast. There is no dominant mass, suspicious calcification or architectural distortion in the right breast. Procedure Note Provider, MD Eleazar - 01/20/2021 - GENIA BILATERAL SCREENING W/CAD BILATERAL DIGITAL SCREENING MAMMOGRAM WITH CAD WITH MEDIOLATERAL OBLIQUE CRANIOCAUDAL: 12/23/2014 The study was acquired using full field digital technology and interpretedfrom soft copy. Current study was also evaluated with ICAD version 7.2. COMPARISONS: None - baseline. BREAST TISSUE: There are scattered areas of fibroglandular density. FINDINGS: There is a subcentimeter asymmetry in the posterolateral leftbreast on CC view. There is no suspicious calcification in the left breast. There is no dominant mass, suspicious calcification or architecturaldistortion in the right breast. IMPRESSION: INCOMPLETE BIRADS 0: NEED ADDITIONAL IMAGING EVALUATION 1. Indeterminate left CC view asymmetry. Recommend return to the Breast Center for further imaging. 2. No evidence of malignancy in the right breast. Routine annualmammography of the right breast is recommended. Electronically signed by: Dr. Mp Oliver nh/:12/23/2014 13:10:44 Post Partum Nurse: Dolores Major RT(R)(M), [facility] letter sent: Additional Imaging Reading location: BI-RADS: 0 INCOMPLETE:NEED ADDITIONAL IMAGING EVALUATION [EOD] us Yvonne Boyle MD IMG MAMMO PROCEDURES Final Resu lt * Dexa Axial Skeleton Bone Density 1 or 2 Site (12/23/2014 11:54 AM CDT) Anatomical Region Laterality Modality Body N/A Radiographic Gabbie ging 12/23/2014 11:5 4 AM CDT Impressions 12/23/2014 1:15 PM CDT By WHO criteria, this patient has osteopenia. This is based on the bone mineral density at the lowest site, in this case both the left total femur and left femoral neck. THIS IS AN ELECTRONICALLY VERIFIED REPORT 12/23/2014 1:12 PM: Mp Oliver M.D. Mp Oliver M.D. [place]:adalberto 01:12 PM 01:12 PM [facility] [EOD] Narrative 12/23/2014 1:15 PM CDT EXAMINATION: Bone Density Study (DEXA) HISTORY: 64-year-old postmenopausal woman. COMPARISON: None TECHNIQUE: Dual-energy X-ray absorptiometry of the lumbar spine and left femur was performed. FINDINGS: Lumbar spine (from L1 through L4): The bone mineral density is 1.202 gm / cm sq. The T score is 1.4. Left Femur Total: The bone mineral density is 0.805 gm / cm sq. The T score is -1.1. Left Femur Neck: The bone mineral density is 0.725 gm / cm sq. The T score is -1.1. Procedure Note Provider, MD Eleazar - 01/20/2021 EXAMINATION: Bone Density Study (DEXA) HISTORY: 64-year-old postmenopausal woman. COMPARISON: None TECHNIQUE: Dual-energy X-ray absorptiometry of the lumbar spine and leftfemur was performed. FINDINGS: Lumbar spine (from L1 through L4): The bone mineral density is 1.202 gm / cm sq. The T score is 1.4. Left Femur Total: The bone mineral density is 0.805 gm / cm sq. The T score is -1.1. Left Femur Neck: The bone mineral density is 0.725 gm / cm sq. The T score is -1.1. IMPRESSION: By WHO criteria, this patient has osteopenia. This is basedon the bone mineral density at the lowest site, in this case both the lefttotal femur and left femoral neck. THIS IS AN ELECTRONICALLY VERIFIED REPORT 12/23/2014 1:12 PM: Mp Oliver M.D. Mp Oliver M.D. NH:adalberto 01:12 PM 01:12 PM [facility] [EOD] Yvonne Boyle MD IMG DXA PROCEDURES Final Result from Last 3 Months or Most Recently Relevant to Health Maintenance Insurance [facility] MEDIC[facility] Advance Directives For more information, please contact: [phone] * Full Code (Latest Code Status on File) Date Activated Date Inactivated Comments 06/19/2023 1:11 PM 06/24/2023 9:34 PM Care Teams Youth Associate Relationship Specialty Start Date End Date Vanna Carvajal MD [address] [address] PCP - General Geriatric Medicine 02/19/25
--- OUTSIDE RECORDS SUMMARY | 2025-05-13 11:23 | XMS_ITS | Patient Health Record ---
Author Organization [facility] Address [address] [facility] [address] [place] [address] Care Team Providers Care Certified Nurse Midwife Name Role Phone Drew Lane Unavailable [phone] Reason For Referral No Information Plan Of Treatment No Information Insurance Providers Payer Name Payer Address Payer Phone Subscriber Number Group Number Insured Name Patient Relationship to Insured Coverage Start Date Coverage End Date [employer] Medicare Replacemen t/Advantag e - Ppo [address] [place] [address] [id number] CHIDI BURNETT Self - patient is the insured
--- OUTSIDE RECORDS SUMMARY | 2025-05-13 11:23 | XMS_ITS | Encounter Summary ---
Author Organization [facility] Address [address] [place] [address] Care Team Providers Care Supervisor Beam Department Name Role Phone Vanna Carvajal MD Primary Care Provider [phone] Reason for Visit * Reason Comments Medication Refill Encounter Details Date Type Department Care Team (Late st Contact Info) Description 05/08/2019 Refill [facility] [place] [address] [place] [address] Beba Epstein NP [address] [address] Multiple sclerosis (CMS/[facility]) Social History Tobacco Use Types Packs/Day Years Used Date Smoking Tobacco: Former Cigarettes 0.5 25 0 04/14/1964 - 04/14/1989 Smokeless Tobacco: Never Alcohol Use Standard Drinks/Week Comments No 0 (1 standard drink = 0.6 oz pur e alcohol) Comments No Sex and Gender Information Value Date Recorded Sex Assigned at Female 07/18/2023 6:44 PM 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 Sex Female 6:03 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 Gender Identity Female 07/18/2023 6:44 PM 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 Sexual Orientation Not on file Occupation Industry Job Start Date Job End Date Not on file Not on file Not on file Not on file documented as of this encounter Miscellaneous Notes * Telephone Encounter - Rebeca Urban - 05/09/2019 1:50 PM CDT [facility] 12/31/18 documented in this encounter Plan of Treatment Not on file documented as of this encounter Visit Diagnoses Diagnosis Multiple sclerosis (CMS/HCC) Multiple sclerosis documented in this encounter Additional Health Concerns Assessment Noted Time PHQ-9 Depression Total Score: 4 12/07/19 19 10:00 AM CDT documented as of this encounter Care Teams Supervisor Beam Department Relationship Specialty Start Date End Date Vanna Carvajal MD [address] [address] PCP - General Geriatric Medicine 07/26/24 documented as of this encounter
--- OUTSIDE RECORDS SUMMARY | 2025-05-13 11:23 | XMS_ITS | Encounter Summary ---
[facility] Organization [facility] Address [address] [place] [address] Care Team Providers Care Coil Finisher Name Role Phone Vanna Carvajal MD Primary Care Provider [phone] Reason for Visit * Reason Onset Date Comments Medication Refill 08/24/2012 Encounter Details Date Type Department Care Team (Late st Contact Info) Description 08/24/2012 Refill Central Business Office [address] [place] [phone] Andree Torres Provider Social History Tobacco Use Types Packs/Day Years Used Date Smoking Tobacco: Former Cigarettes 0.5 25 0 04/14/1964 - 04/14/1989 Alcohol Use Standard Drinks/Week Comments No 0 (1 standard drink = 0.6 oz pur e alcohol) Comments No Sex and Gender Information Value Date Recorded Sex Assigned at Female 07/18/2023 6:44 PM DRAUGHTSMAN Legal Sex Female 6:03 AM DRAUGHTSMAN Gender Identity Female 07/18/2023 6:44 PM DRAUGHTSMAN Sexual Orientation Not on file Occupation Industry Job Start Date Job End Date Not on file Not on file Not on file Not on file documented as of this encounter Miscellaneous Notes * Telephone Encounter - Gabriella Huber Cindy - 08/24/2012 1:19 PM CSTFrom: FLOR CASILLSA Sent: [facility] Aug 24, 2012 1:06 PM Subject: Medication Renewal Request Flor Vinny would like a refill of the following medications: Preferred pharmacy: [facility] [id number] Comment: I need a new script for my Beteseron. Thank you. I get it 3 months at a time. Other - see comments for explanation GHTSMAN documented in this encounter Plan of Treatment Not on file documented as of this encounter Visit Diagnoses Not on filedocumented in this encounter Care Teams Coil Finisher Relationship Specialty Start Date End Date Vanna Carvajal MD [address] [place] [address] PCP - General Geriatric Medicine 07/26/24 documented as of this encounter
--- OUTSIDE RECORDS SUMMARY | 2025-05-13 11:23 | XMS_ITS | Encounter Summary ---
Author Organization [facility] Address [address] [place] [address] Care Team Providers Care Groundman/Lineman Name Role Phone Vanna Carvajal MD Primary Care Provider [phone] Reason for Visit * Reason Onset Date Comments Medication Refill 06/19/2012 Encounter Details Date Type Department Care Team (Late st Contact Info) Description 06/19/2012 Refill Central Business Office [address] [place] [phone] Brian, Andree Provider Social History Tobacco Use Types Packs/Day Years Used Date Smoking Tobacco: Former Cigarettes 0.5 25 0 04/14/1964 - 04/14/1989 Alcohol Use Standard Drinks/Week Comments No 0 (1 standard drink = 0.6 oz pur e alcohol) Comments No Sex and Gender Information Value Date Recorded Sex Assigned at Female 07/18/2023 6:44 PM BRACELET AND BROOCH MAKER Legal Sex Female 6:03 AM BRACELET AND BROOCH MAKER Gender Identity Female 07/18/2023 6:44 PM BRACELET AND BROOCH MAKER Sexual Orientation Not on file documented as of this encounter Miscellaneous Notes * Telephone Encounter - Gabriella Huber - 06/19/2012 3:49 PM CDTFrom: FLOR CASILLAS Sent: TueJun 19, 2012 12:47 PM Subject: Medication Renewal Request Flor Vinny would like a refill of the following medications: Preferred pharmacy: [facility] [address] [place] [address] Comment: I requested a refill on Baclofen and the email you replied to said that PRISTIQ was sent in to be refilled. Did I read this wrong??I need Baclofen refilled. Other - see comments for explanation documented in this encounter Plan of Treatment Not on file documented as of this encounter Visit Diagnoses Not on filedocumented in this encounter Care Teams Groundman/Lineman Relationship Specialty Start Date End Date Vanna Carvajal MD [address] [place] [address] PCP - General Geriatric Medicine 07/26/24 documented as of this encounter
--- OUTSIDE RECORDS SUMMARY | 2025-05-13 11:23 | XMS_ITS | Clinical Summary ---
Author Organization [facility] Address [address] [place] [address] Care Team Providers Care Polysom Tech Name Role Phone Vanna Carvajal MD Primary Care Provider [phone] Allergies Active Allergy Reactions Criticality Noted Date Comments Adhesive Rash Medium 01/22/2019 Adhesive Tape-Silicones Rash Low 01/22/2019 Metformin Diarrhea Low 12/20/2019 Fecal incontinence Oxycodone Rash Medium 05/08/2019 Histamine response Medications melatonin 1 mg Tablet Take 5 mg by mouth nightly as needed. Active bisacodyl (THE MAGIC BULLET) 10 mg Suppository rectal suppository Insert 1 Suppository (10 mg) by rectum daily at bedtime. 30 Suppository 03/12/20 23 Active glatiramer 40 mg/mL Syringe Inject 40 mg by subcutaneous injection. 06/10/20 23 Active clonazePAM (KlonoPIN) 0.5 mg TabletIndicatio ns:Insomnia, unspecified type Take 0.5 Tablets (0.25 mg) by mouth daily. For muscle spasms/coordinat ion. 45 Tablet 1 06/29/20 23 Active Cholecalciferol , Vitamin D3, 50 mcg (2,000 unit) Capsule Take 2,000 Units by mouth daily. 06/29/20 23 Active furosemide (LASIX) 20 mg tablet Take 1 Tablet (20 mg) by mouth daily. 90 Tablet 3 07/19/20 23 Active cilostazoL (PLETAL) 100 mg Tablet Take 1 Tablet (100 mg) by mouth 2 times daily before meals. 180 Tablet 2 07/21/20 23 Active mirtazapine (REMERON) 7.5 mg tablet Take 1 Tablet (7.5 mg) by mouth daily at bedtime. 90 Tablet 3 08/11/20 23 Active ibuprofen (MOTRIN) 600 mg tablet Take 1 Tablet (600 mg) by mouth every 6 hours as needed for Pain, Mild. 180 Tablet 3 08/19/20 23 Active OTHER Copaxone for MS Acti ve pantoprazole (PROTONIX) 40 mg Tablet, Delayed Release (E.C.) take 1 tablet by mouth every day 90 Tablet 3 01/09/20 24 Active baclofen (LIORESAL) 5 mg tablet take 1 tablet by mouth 3 times daily. 90 Tablet 3 02/20/20 24 Active pregabalin (LYRICA) 75 mg Capsule TAKE 1 CAPSULE BY MOUTH EVERY MORNING AND TAKE 2 CAPSULES EVERY NIGHT 90 Capsule 5 02/27/20 24 Active solifenacin (VESICARE) 10 mg TabletIndicatio ns:Neurogenic bladder Take 1 Tablet (10 mg) by mouth daily. 90 Tablet 3 03/05/20 24 Active atorvastatin (LIPITOR) 10 mg tablet Take 1 Tablet (10 mg) by mouth daily at bedtime. OVERDUE FOR LABS. 100 Tablet 06/29/20 24 Active Active Problems Problem Noted Date Diagnosed Date Chronic diarrhea 09/22/2023 Dysphagia 06/19/2023 Overview (09/22/2023): Last Assessment & Plan: Difficulty swallowing and coughing with PO intake per family. - GRAND SCRIBE eval WNL, cont regular diet with thin liquids Leg swelling 06/19/2023 Overview (09/22/2023): Last Assessment & Plan: CT negative for fracture. Venous doppler negative for DVT - improving w/o intervention Acute pain of right shoulder 04/10/2023 Acute pain of right knee 04/10/2023 Type 2 diabetes mellitus without complications 0 03/16/2023 Overview (09/22/2023): Diabetes was suspected because the patient is on a medication for Diabetes, but Diabetes is not documented in the note. This diagnosis, E11.9 Type 2 diabetes mellitus without complications, is suspected based on documentation from date of service 01/12/2023. Type 2 diabetes in remission. (is the same code as Type 2 diabetes without complication) The A1c has been 6.0 or less since 2019, on no meds. As written in Every Word Counts - Diabetes in Remission = A1c < 6.5% for at least 3 months without antihyperglycemic agents after prior diagnosis of DM ERICKA PRESTWICH 03/16/2023 Muscle spasticity 02/26/2023 Spasticity 02/26/2023 Neurogenic bowel 02/26/2023 Neurogenic bladder 02/26/2023 Palliative care patient 02/23/2023 Bowel incontinence 02/20/2023 Arthritis of right knee 02/19/2023 Leg weakness, bilateral 02/17/2023 Overview (09/09/2023): Last Assessment & Plan: Difficulty with transfers even with 2-person assist which began recently. MRI brain and spine negative for new demyelinating lesions or other explanatory findings. No saddle anesthesia or incontinence. - PT/OT rec inpatient rehab, pt and family agreeable. CM following - pt reports drowsiness with baclofen, will encourage prn klonopin for spasms instead Fecal smearing 02/17/2023 [place] (generalized anxiety disorder) 02/17/2023 Primary insomnia 02/17/2023 Right leg pain 02/17/2023 Wheelchair dependent 09/22/2021 Cognitive dysfunction accompanying multiple scle rosis 10/13/2019 Weakness 10/13/2019 Osteopenia of left thigh 12/08/2017 Prediabetes 06/05/2017 Paresthesia of bilateral legs 12/30/2015 Major depressive disorder, recurrent episode, mi ld 08/12/2015 Paresis 04/10/2013 History of colonic polyps 03/05/2013 Gastroesophageal reflux disease without esophagi tis 04/07/2011 Spasm of muscle 04/07/2011 Pain 04/07/2011 Overview (09/09/2023): 1. Do you have any questions about [...] to the pandemic?No Bonny Frazier RN 09/02/20 Multiple sclerosis 06/01/2010 Overview (09/09/2023): DX: MS Date of Disability: 12/02/2009 Betaseron 2005 - 2012 Copaxone 03/2013 - present Copaxone 40 mg started on 11/29/2013 DX: MS Date of Disability: 12/02/2009 Betaseron 2005 - 2012 Copaxone 03/2013 - present Copaxone 40 mg started on 11/29/2013 MS Medication History: RRMS Symptom onset & diagnosis: 2005 with incomplete TM 1. Betaseron: [id number] 2. Copaxone: 2013-10/2022 3. Copaxone: 06/2023- Last Assessment & Plan: Currently on copaxone. Brain and spine MRI this admission without new lesions. - Continue Copaxone - cont outpt Neuro f/u Idiopathic transverse myelitis 06/01/2010 Resolved Problems Problem Noted Date Diagnosed Date Resolved Date Impingement of right shoulder 04/10/2023 09/22/2023 Mixed stress and urge urinary incontinence 08/10/2021 09/22/2023 Fecal urgency 03/19/2021 09/22/2023 Aortic atherosclerosis 07/10/202009/22 Refusal of statin medication by patient 08/05/2019 01/08/2021 Prediabetes 06/05/2018 01/08/2021 Spinal cord lesion 03/01/2016 9 Overview (12/07/2018): Resolved per 12/06/18 previsit query Obesity (BMI 30.0-34.9) 08/12/201509/05 Urinary frequency 04/07/2011 09/22/2023 History of basal cell carcinoma 04/07/2011 09/22/2023 Lower paraplegia 04/07/2011 09/09/2023 Incisional hernia 04/07/2011 04/07/2011 Depression 04/07/2011 06/10/2016 Overview (06/10/2016): Resolved duplicate diagnosis. Kh 10-6-16 Abdominal wall hernia 04/07/20112018 Encounters Date Type Department Care Team Description 04/09/2025 External Device Data STL ABSTRACTION Provider, Abstract 03/20/2025 External Device Data STL ABSTRACTION Provider, Abstract 03/19/2025 External Device Data STL ABSTRACTION Provider, Abstract 02/19/2025 External Device Data STL ABSTRACTION Provider, Abstract from Last 3 Months Immunizations Immunization Administration Dates Next Due (PFIZER)(12 YR UP) COVID-19 VACCINE - EMERGENCY USE AUTHORIZATION, MRNA, [id number](PF) 30 MCG/0.3 ML IM SUSP 09/28/2021,11/03/2020,10/13/2020 (PNEUMOVAX 23)(50 YRS UP) PN EUMOCOCCAL POLYSACCHARIDE (PPV23) 0.5 ML, IM 12/06/2018 (PREVNAR 13)(6 WKS UP) PNEUM OCOCCAL CONJUGATE (PCV13) 0.5 ML, IM 12/02/2014 INFLUENZA VACCINE HIGH DOSE QUADRIVALENT 65 YR UP PF IM 05/16/2023,08/10/2022,08/10/2021,07/10 Influenza Seasonal Unspecifi ed Formulation IM 09/17/2013 Influenza Vaccine High Dose 65+ Yrs IM 0 05/16/2023,06/05/2018,11/30/2017,06/16,08/11/2015 Influenza Vaccine Split PF ID 07/26/2012 Pneumococcal conjugate, unsp ecified formulation 09/17/2013 Family History Medical History Relation Name Comments Diabetes Brother 1 jvoan Heart Disease Brother 2 sae Heart Surgery Brother 2 sae Hypertension Brother 2 sae Hypertension Daughter Paloma greyson Kidney Disease Daughter Paloma greyson Migraines Mother Stroke Mother Relation Name Status Comments Brother 1 jovan Alive Brother 2 sae Alive Daughter Paloma greyson Alive Father Mother Social History Tobacco Use Types Packs/Day Years Used Date Smoking Tobacco: Former Cigarettes 0.5 25 0 04/14/1964 - 04/14/1989 Smokeless Tobacco: Never Tobacco Cessation:Counseling Given: Not Answered Alcohol Use Standard Drinks/Week Comments No 0 (1 standard drink = 0.6 oz pur e alcohol) Feeling Safe Answer Date Recorded Are you in a relationship wi th someone who hurts you emotionally and/or physically? No 12/04/2024 Food Insecurity Answer Date Recorded Social/Environmental Concerns No concerns Transportation Needs Answer Date Record ed Social/Environmental Concerns No concerns Housing Stability Answer Date Recorded Social/Environmental Concerns No concerns Utility Needs Answer Date Recorded Social/Environmental Concerns No concerns Comments No Sex and Gender Information Value Date Recorded Sex Assigned at Female 07/18/2023 6:44 PM FOOD COUNTER WORKER Legal Sex Female 6:03 AM FOOD COUNTER WORKER Gender Identity Female 07/18/2023 6:44 PM FOOD COUNTER WORKER Sexual Orientation Not on file Occupation Industry Job Start Date Job End Date Not on file Not on file Not on file Not on file Last Filed Vital Signs Vital Sign Reading Time Taken Comments Blood Pressure 123/83 09/22/2023 2:32 PM FOOD COUNTER WORKER Pulse 97 09/22/2023 2:32 PM FOOD COUNTER WORKER Temperature 36.6 C (97.8 F) 03/12/2023 9:51 AM CDT Respiratory Rate 18 03/12/2023 9:51 AM CDT Oxygen Saturation 94% 09/22/2023 2:32 PM FOOD COUNTER WORKER Inhaled Oxygen Concentration - - Weight 74.4 kg (164 lb) 09/22/2023 2:32 PM FOOD COUNTER WORKER Height 157.5 cm (5' 2) 09/22/2023 2:32 PM FOOD COUNTER WORKER Body Mass Index 30 09/22/2023 2:32 PM FOOD COUNTER WORKER Plan of Treatment Health Maintenance Due Date Last Done Comments FIT-DNA Q 3 years 1994 FIT/FOBT Q 1 year 1994 Flex Sig/CT Colonography Q 5 years 1994 RSV VACCINE (60+ or ) (1 - 1-dose 75+ series) 2024 COLORECTAL SCREENING 11/21/2024 11/22/2019, 03/07/2018, 02/05/2013 Colorectal Cancer Screening 11/21/2024 INFLUENZA VACCINE (#1) 2025 3, 05/16/2023, 08/10/2022, Additional history exists COVID-19 Vaccine (2024-2 6 season) 2025 09/28/2021, 11/03/2020, 10/13/2020 OSTEOPOROSIS SCREENING 08/06/2027 4, 08/06/2024, 08/25/2021, Additional history exists DTAP/TDAP/TD VACCINES (2 - T d or Tdap) 03/07/2034 03/07/2024 PNEUMOCOCCAL VACCINE 50+ YEARS Completed 0 03/07/2024, 12/06/2018, 12/02/2014, Additional history exists ZOSTER VACCINE Completed 04/13/2024, 06/0 09/2021 (Previously completed), 09/05/2021 (Previously completed) Goals Goal Patient Goal Type Associated Problems Recent Progress Patient-Stated? Author Connect to outpatient pscyhiatry. General Yes Jose Lara Note: - Patient requires support from Collaborative Waste Water Operator to connect to services - Medical Devices Implanted Type Area Bookkeeping Machine Operator Device Identifier Shelf Expiration Date Model / Serial / Lot Mesh [employer] Sm Crcl [id number] - [id number] Implanted:Qty : 1 on 01/22/2019 by Henrique Avalos MD at [facility] Mesh N/A: Abdomen CR [employer]- [employer] [id number] 05/02/2020 [id number] / / [id number] Procedures Procedure Name Priority Date/Time Associated Diagnosis Comments XR DEXA BONE DENSITY AXIAL 1 OR MORE SITES Routine 08/25/2021 1:33 PM FOOD COUNTER WORKER Osteopenia of left thigh ENDOSCOPY, COLON, SCREENING Routine 11/22/2019 from Last 3 Months or Most Recently Relevant to Health Maintenance Results * XR DEXA BONE DENSITY AXIAL 1 OR MORE SITES (08/25/2021 1:33 PM FOOD COUNTER WORKER) Anatomical Region Laterality Modality Digital Radiogra phy 08/25/2021 1:34 PM FOOD COUNTER WORKER Narrative 08/25/2021 1:38 PM FOOD COUNTER WORKER XR DEXA BONE DENSITY AXIAL 1 OR MORE SITES DATE: 08/25/2021 1:33 PM HISTORY: 71 years old Female with post menopausal symptoms. PROCEDURE: Planar images of the lumbar spine and hip(s) using a Portable Scores DEXA scanner for bone mineral density determination (BMD). Absolute bone mineral density measurements (in gm/cm^2) are available on the original PACS report. Comparison is made with the prior bone density performed 12/07/2017 FINDINGS: Lumbar Spine (L1-L4) T-score: +2.5 : +12.3% change Left femoral neck T-score: -1.6 : 0.0% change Right femoral neck T-score: -0.8 : -4.7% change Comments: None IMPRESSION Osteopenic bone mineral density. STATISTICAL CHANGE: Significant increase in bone mineral density of the lumbar spine since the prior study. Significant decrease in bone mineral density of the right femoral neck since the prior study. A statistically significant change is defined as a change of greater than 2.5 standard deviations in the least significant difference from the prior study. Least significant differences are defined as follows: Lumbar spine: +/- 0.010 g/cm2 Femoral neck: +/- 0.014 g/cm2 Forearm radius 33%: +/- 0.020 g/cm2 DEFINITIONS: Normal: T-score above -1.0 Osteopenia T-score less than -1.0 and above -2.5 Osteoporosis: T-score < -2.5 FRAX FRACTURE RISK ASSESSMENT: Risk factors: None. 10 Year Probability Of Fracture -Major Osteoporotic: 10.8% -Hip: 1.9% -Comparison population: [place], A major osteoporotic fracture is defined as a fracture of the spine, forearm, hip or shoulder. FOLLOW-UP RECOMMENDATIONS: Patients without high risk factors for osteoporosis: T-score -1.0 to -1.5 - Consider repeat BMD in 5-10 years T-score -1.5 to -2.0 - Consider repeat BMD in 3-5 years T-score -2.0 to - 2.5 - Consider repeat BMD every 2 years Patients on treatment for osteoporosis: 1-2 years after initiation of treatment and every 2 years [address] Juan Anna DO DICTATION LOCATION: Location 1 - [facility] Procedure Note Juan Anna DO - 08/25/2021 XR DEXA BONE DENSITY AXIAL 1 OR MORE SITES DATE: 08/25/2021 1:33 PM HISTORY: 71 years old Female with post menopausal symptoms. PROCEDURE: Planar images of the lumbar spine and hip(s) using a Portable Scores DEXA scanner for bone mineral density determination (BMD). Absolute bone mineral density measurements (in gm/cm^2) are available on the original PACS report. Comparison is made with the prior bone density performed 12/07/2017 FINDINGS: Lumbar Spine (L1-L4) T-score: +2.5 : +12.3% change Left femoral neck T-score: -1.6 : 0.0% change Right femoral neck T-score: -0.8 : -4.7% change Comments: None IMPRESSION Osteopenic bone mineral density. STATISTICAL CHANGE: Significant increase in bone mineral density of the lumbar spine since the prior study. Significant decrease in bone mineral density of the right femoral neck since the prior study. A statistically significant change is defined as a change of greater than 2.5 standard deviations in the least significant difference from the prior study. Least significant differences are defined as follows: Lumbar spine: +/- 0.010 g/cm2 Femoral neck: +/- 0.014 g/cm2 Forearm radius 33%: +/- 0.020 g/cm2 DEFINITIONS: Normal: T-score above -1.0 Osteopenia T-score less than -1.0 and above -2.5 Osteoporosis: T-score < -2.5 FRAX FRACTURE RISK ASSESSMENT: Risk factors: None. 10 Year Probability Of Fracture -Major Osteoporotic: 10.8% -Hip: 1.9% -Comparison population: [place], A major osteoporotic fracture is defined as a fracture of the spine, forearm, hip or shoulder. FOLLOW-UP RECOMMENDATIONS: Patients without high risk factors for osteoporosis: T-score -1.0 to -1.5 - Consider repeat BMD in 5-10 years T-score -1.5 to -2.0 - Consider repeat BMD in 3-5 years T-score -2.0 to - 2.5 - Consider repeat BMD every 2 years Patients on treatment for osteoporosis: 1-2 years after initiation of treatment and every 2 years [address] Juan Anna, DICTATION LOCATION: Location 1 - [facility] Yvonne Boyle MD DIAGNOSTIC IMAGING ORDERABLES Fi nal Result * ENDOSCOPY, COLON, SCREENING (11/22/2019) us Yvonne Boyle MD GI PROCEDURE ORDERABLES Final Re sult [facility]# [id number] [address] [id number] from Last 3 Months or Most Recently Relevant to Health Maintenance Insurance RX AETNA Medicare Part D AETNA [id number] GOLD [facility] Advance Directives For more information, please contact: [phone] Documents on File Type Date Recorded Patient Loader Engineer Expl anation Advance Directive POA 02/27/2023 10:17 AM Advance Directive POA Advance Directive POA 02/23/2023 9:07 AM A dvance Directive POA Advance Directive Living Will 02/06/2013 2:21 PM Advance Directive Living Will * Full Code (Latest Code Status on File) Date Activated Date Inactivated Comments 02/26/2023 7:26 PM 03/12/2023 1:12 PM * Full Code Date Activated Date Inactivated Comments 02/17/2023 1:55 AM 02/26/2023 5:03 PM * Full Code Date Activated Date Inactivated Comments 05/08/2019 3:23 PM 05/08/2019 7:52 PM * Full Code Date Activated Date Inactivated Comments 05/08/2019 12:29 PM 05/08/2019 3:23 PM * Full Code Date Activated Date Inactivated Comments 01/22/2019 8:20 AM 01/22/2019 2:15 PM Care Teams Polysom Tech Relationship Specialty Start Date End Date Vanna Carvajal MD [address] [place] [address] PCP - General Geriatric Medicine 07/26/24
--- OUTSIDE RECORDS SUMMARY | 2025-05-13 11:23 | XMS_ITS | Encounter Summary ---
Author Organization [employer] Address [address] [place] [address] Care Team Providers Care Hat Trimmer Name Role Phone Vanna Carvajal MD Primary Care Provider [phone] Reason for Referral * Behavioral Health - Outpatient (Routine) - Closed Specialty Diagnoses / Procedures Referred By Jerry valverde Referred To Contact Diagnoses Major depressive disorder, recurrent episode, mild Procedures SC OFFICE/OUTPATIENT ESTABLISHED MOD MDM 30-39 MIN SC OFFICE/OUTPATIENT NEW MODERATE MDM 45-59 MINUTES Karmen Mcleod [place] [id number] [place] [address] [place] [id number] Phone: tel: fax: Referral ID Status Reason Start Date Expiration Date Visits Re quested Visits Authorized [id number] Closed 05/06/2023 05/05/2024 1 1 * Behavioral Health - Outpatient (Routine) - Closed Specialty Diagnoses / Procedures Referred By Jerry valverde Referred To Contact Psychiatry Diagnoses Major depressive disorder, recurrent episode, mild Procedures SC OFFICE/OUTPATIENT ESTABLISHED MOD MDM 30-39 MIN SC OFFICE/OUTPATIENT NEW MODERATE MDM 45-[place] [address] [facility] [address] [place] [phone] Phone: tel: fax: Referral ID Status Reason Start Date Expiration Date Visits Re quested Visits Authorized [id number] Closed 05/05/2023 05/05/2024 1 1 Reason for Visit * Reason Onset Date Comments Medication Question 05/05/2023 Encounter Details Date Type Department Care Team (Late st Contact Info) Description 05/05/2023 Telephone [facility] [address] [place] [address] [place] [address] [facility] [address] [place] [address] Medication Question Social History Tobacco Use Types Packs/Day Years [...] Sex Assigned at Female 07/18/2023 6:44 PM [employer]ZZA H[employer] ASSISTANT Legal Sex Female 6:03 AM PIZZA H[employer] ASSISTANT Gender Identity Female 07/18/2023 6:44 PM PIZZA H[employer] ASSISTANT Sexual Orientation Not on file Occupation Industry Job Start Date Job End Date Not on file Not on file Not on file Not on file documented as of this encounter Miscellaneous Notes * Telephone Encounter - Karmen Mcleod MD - 05/06/2023 3:15 PM CDT Thank you! Yes, that is fine. I sent the refill in a separate encounter! * Telephone Encounter - Gemma Schumacher RN - 05/06/2023 2:03 PM CDT Called pt and let her know we will take over this med for up to 6 months. Pt understood. She will call [facility] to set up psych. I reentered [facility] referral - pt still wants to do this. Pt uses [facility] in [place], [place] for scripts. Can we send klonopin 0.5 mg once daily foranxiety until she sees psych? She knows she needs to see them. * Telephone Encounter - Karmen Mcleod MD - 05/05/2023 9:19 PM CDT For sure - I think both referrals are appropriate. I would like her to establish with a new psychiatrist but I can bridge refills between psychiatrists if needed * Telephone Encounter - Gemma Schumacher RN - 05/05/2023 1:[address] Mcleod wanted me to check on this and get more info on dosage, how often she's taking it, andwhat for. Klonopin 0.5 mg Taking every day in AM for anxiety I told pt that this likely needs to come from psych, so we may put in a new referral for them. She asked about a temp refill of this. Pt also asked about [a[employer]. She wants this as an option as well so someone would check in with her. Does that sound ok to you? I pended the [facility] and psychiatry referrals. * Telephone Encounter - Maranda Hart - 05/05/2023 11:48 AM CDT Provider: Karmen Mcleod MD Next office visit: 05/16/2023 Karmen Mcleod MD Caller: Flor Casillas Message: Patient is wanting to see if Dr Mcleod can prescribe her Clonazepam, 0.[address] Rob had prescribed her originally. Please call her and Pharmacy: [facility] [place], [place] Call-back Number: [phone] (home) documented in this encounter Plan of Treatment Scheduled Referrals Name Type Priority Associated Diagnoses Order Schedule AMB REFERRAL TO PSYCHIATRY Outpatient Referral Routine Major depressive disorder, recurrent episode, mild Ordered: 05/05/2023 AMB [address]ERRAL TO [facility] Outpatient Referral Routine Major depressive disorder, recurrent episode, mild Ordered: 05/06/2023 documented as of this encounter Visit Diagnoses Diagnosis Major depressive disorder, recurrent episode, mild- Primary documented in this encounter Additional Health Concerns Assessment Noted Time PHQ-9 Depression Total Score: 2 08/10/20 21 10:00 AM PIZZA H[employer] ASSISTANT documented as of this encounter Care Teams Hat Trimmer Relationship Specialty Start Date End Date Vanna Carvajal MD [address] [place] [address] PCP - General Geriatric Medicine 07/26/24 documented as of this encounter
== END 2025-05-13 10:54 | disposition home or self-care (01) ==
PROVIDERS: Visit Provider Anesthesiology Pain Medicine
DX: M79.651 Pain in right thigh (principal)
CPT/HCPCS: 73552